=== PATIENT | male | born 1965 | race Caucasian/White ===

== ENCOUNTER 2018-11-30 14:19 | Outpatient (CLI) | payer OTHER | END 2018-11-30 14:20 | disposition home or self-care (01) | LOC: LAB 14:19 | PROVIDERS: ATTEND Specialist | DX: N40.1 Benign prostatic hyperplasia with lower urinary tract symptoms (principal) | CPT/HCPCS: 36415; 84153 ==

== ENCOUNTER 2019-09-27 09:15 | Outpatient (CLI) | payer BC ==
[2019-09-27] MEDS ORDERED: IOVERSOL 320 100 ML VIAL IVP ONE ×2 (09:21→10:01)
[2019-09-27 09:37] LABS: CREATININE 0.9 mg/dL (0.6-1.2)
--- NOTE | 2019-09-27 14:52 | CT Report ---
Reason: BPH HEMATURIA Procedure Date: 09/27/2019 Accession Number: [id number] / [id number] Procedure: CT - IVP CPT Code: Final Report FULL RESULT: EXAM: CT ABDOMEN AND PELVIS WITHOUT AND WITH CONTRAST (CT IVP) EXAM DATE: 09/27/2019 10:00 AM. CLINICAL HISTORY: BPH, hematuria. COMPARISONS: None. TECHNIQUE: Routine helical imaging was performed through the kidneys, ureters and bladder in the precontrast, postcontrast and delayed phase. IV Contrast: OPTI 320, 100 mL. Reconstructions: Coronal and sagittal. In accordance with CT protocol optimization, one or more of the following dose reduction techniques were utilized for this exam: automated exposure control, adjustment of mA and/or KV based on patient size, or use of iterative reconstructive technique. FINDINGS: Lung Bases: Unremarkable. Liver: Normal. No masses. Gallbladder/Bile Ducts: Unremarkable. Spleen: Normal. Pancreas: Normal. Adrenal Glands: Normal. Kidneys/Bladder: Right Kidney/Ureter: No renal or ureteral stones. No hydronephrosis or hydroureter. No masses. Left Kidney/Ureter: No renal or ureteral stones. No hydronephrosis or hydroureter. No masses. Bladder: No stones. The prostate is prominent in size and lifts the bladder base with a few small bladder diverticuli seen. No convincing bladder mass is otherwise seen. Peritoneal Cavity/Bowel: Normal. No free fluid, free air or adenopathy. No masses or acute inflammatory process. Pelvic Organs: Visualized pelvic organs are unremarkable. Vasculature: No aneurysms or other significant abnormality. Bones: No significant abnormality. Other: None. IMPRESSION: No urothelial masses detected. Prominent prostate with small bladder diverticuli, correlate to symptomatic bladder outlet obstruction. [facility]
== END 2019-09-27 09:16 | disposition home or self-care (01) ==
LOC: DI 09:15
PROVIDERS: ATTEND Urology
DX: N40.0 Benign prostatic hyperplasia without lower urinary tract symptoms (principal); N32.3 Diverticulum of bladder
CPT/HCPCS: 36415; 74178; 82565